=== PATIENT | male | born 1980 | race Caucasian/White ===

== ENCOUNTER 2020-03-21 18:09 | Emergency (ER) | payer SELFPAY ==
--- NOTE | 2020-03-21 19:31 | ER Document Report ---
ED Medical Screen (RME) - General Chief Complaint: Medical Clearance Stated Complaint: MEDICAL CLEARANCE/[place] Time Seen by Provider: 03/21/20 19:23 - HPI Notes: 03/21/20 19:30 39-year-old male to the emergency department stating he needs medical clearance so he can go to [place] for alcoholism. He states that he has been drinking heavily for several years. However, he states that he is drinking habits have increased significantly in the past month and a half. He states he and his of 8 years have gotten . He states that since her separation he has been drinking all the time. He thinks he has had about 26 beers today. He went to [place] to try to get help for his alcoholism and he was sent here for medical clearance before he can have a bed. He denies any SI, HI. He states he has been hearing voices for 3 years. I performed a brief medical screening exam on the patient determined that the patient needs further evaluation and management by main side provider. I have placed initial orders to help expedite care. Physical Exam - Vital signs Vitals: Temp Pulse Resp BP Pulse Ox 98.3 F 107 H 16 149/83 H 96 03/21/20 19:03 03/21/20 19:03 03/21/20 19:03 03/21/20 19:03 03/21/20 19:03 Course - Vital Signs Vital signs: Temp Pulse Resp BP Pulse Ox 98.3 F 107 H 16 149/83 H 96 03/21/20 19:03 03/21/20 19:03 03/21/20 19:03 03/21/20 19:03 03/21/20 19:03
[2020-03-21 20:25] LABS: URINE AMPHETAMINES SCREEN NEGATIVE; URINE BARBITURATES SCREEN NEGATIVE; URINE BENZODIAZEPINES SCREEN NEGATIVE; URINE COCAINE SCREEN NEGATIVE; URINE METHADONE SCREEN NEGATIVE; URINE PHENCYCLIDINE SCREEN NEGATIVE
[2020-03-21 20:26] LABS: URINE MARIJUANA (THC) SCREEN UNCONFIRMED POSITIVE
[2020-03-21 20:30] LABS: ABSOLUTE BASOPHILS # (AUTO) 0.1 10^3/uL (0.0-0.2); ABSOLUTE EOSINOPHILS # (AUTO) 0.1 10^3/uL (0.0-0.6); ABSOLUTE LYMPHOCYTES (AUTO) 2.6 10^3/uL (0.5-4.7); ABSOLUTE MONOCYTES (AUTO) 0.7 10^3/uL (0.1-1.4); ABSOLUTE NEUT (AUTO) 2.9 10^3/uL (1.7-8.2); ALKALINE PHOSPHATASE 54 U/L (38-126); ANION GAP 14 (5-19); ASPARTATE AMINO TRANSFERASE 46 U/L (17-59); BILIRUBIN,DIRECT 0.3 mg/dL (0.0-0.4); BILIRUBIN,TOTAL 0.3 mg/dL (0.2-1.3); BLOOD UREA NITROGEN 10 mg/dL (7-20); CALCIUM 9.6 mg/dL (8.4-10.2); CARBON DIOXIDE 25 mmol/L (22-30); CHLORIDE 105 mmol/L (98-107); EOSINOPHILS % (AUTO) 1.6 % (0-6); GLUCOSE 88 mg/dL (75-110); HEMATOCRIT 46.5 % (37.9-51.0); HEMOGLOBIN 16.2 g/dL (13.5-17.0); LYMPHOCYTES % (AUTO) 40.5 % (13-45); MEAN CORPUSCULAR HEMOGLOBIN 33.7 pg (27.0-33.4); MEAN CORPUSCULAR HGB CONC 34.9 g/dL (32.0-36.0); MEAN CORPUSCULAR VOLUME 96 fl (80-97); MONOCYTES % (AUTO) 10.6 % (3-13); PLATELET COUNT 209 10^3/uL (150-450); POTASSIUM 4.4 mmol/L (3.6-5.0); RED BLOOD COUNT 4.82 10^6/uL (4.35-5.55); RED CELL DISTRIBUTION WIDTH 14.7 % (11.5-14.0); SEGMENTED NEUTROPHILS % (AUTO) 45.3 % (42-78); TOTAL CELLS COUNTED % (AUTO) 100 %; TOTAL PROTEIN 8.1 g/dL (6.3-8.2); WHITE BLOOD COUNT 6.4 10^3/uL (4.0-10.5)
[2020-03-21 20:31] LABS: ACETAMINOPHEN < 10 ug/mL (10-30); SALICYLATE < 1.0 mg/dL (2.0-20.0)
[2020-03-21 20:51] LABS: ALCOHOL 422 mg/dL (NONE DETECTED)
[2020-03-21] MEDS ORDERED: NICOTINE 21 MG/24 HR PATCH.TD24 TD ONE (23:39)
[2020-03-21] MEDS ORDERED: LORAZEPAM INJ 2 MG/1 ML VIAL IV ONE (23:39)
[2020-03-22] MEDS ORDERED: NORMAL SALINE 1000 ML 1,000 ML IV ONE (00:11)
--- NOTE | 2020-03-22 00:55 | ER Document Report ---
Entered by VIDAL THOMAS SCRIBE 03/21/20 9514 Acting as scribe for:GRAZYNA NAQVI DO ED General - General Chief Complaint: Medical Clearance Stated Complaint: MEDICAL CLEARANCE/[place] Time Seen by Provider: 03/21/20 19:23 Information source: Patient Notes: This 39 year old male patient presents to the emergency department today with medical clearance to go to [place]. Patient states he drinks heavily, and the past x1-2 months it has increased to around x2 12 packs of beer daily. Patient states his last period of sobriety was x2 weeks ago where he stayed in a center in [place] for x5 days, but began drinking as soon as he left. 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 Patient states he smokes daily and smokes marijuana. Patient states his of x10 years left him and got a restraining order x1-2 months ago and this is what caused him to increase his drinking. Patient reports history of anxiety. - Related Data Allergies/Adverse Reactions: Penicillins Allergy (Verified 03/21/20 19:45) Past Medical History - General Information source: Patient - Social History Smoking Status: Current Every Day Smoker Cigarette use (# per day): Yes Frequency of alcohol use: Heavy Drug Abuse: Marijuana Family History: Reviewed & Not Pertinent Psychiatric Medical History: Reports: Hx Anxiety Review of Systems - Review of Systems Constitutional: No symptoms reported EENT: No symptoms reported Cardiovascular: No symptoms reported Respiratory: No symptoms reported Gastrointestinal: No symptoms reported Genitourinary: No symptoms reported Male Genitourinary: No symptoms reported Musculoskeletal: No symptoms reported Skin: No symptoms reported Hematologic/Lymphatic: No symptoms reported Neurological/Psychological: See HPI, Anxiety -: Yes All other systems reviewed and negative Physical Exam - Vital signs Vitals: Temp Pulse Resp BP Pulse Ox 98.3 F 107 H 16 149/83 H 96 03/21/20 19:03 03/21/20 19:03 03/21/20 19:03 03/21/20 19:03 03/21/20 19:03 - General General appearance: Alert, Other - Slightly anxious - HEENT Head: Normocephalic, Atraumatic Eyes: Normal Pupils: PERRL - Respiratory Respiratory status: No respiratory distress Chest status: Nontender Breath sounds: Normal Chest palpation: Normal - Cardiovascular Rhythm: Regular Heart sounds: Normal auscultation Murmur: No - Abdominal Inspection: Normal Distension: No distension Bowel sounds: Normal Tenderness: Nontender - Extremities General upper extremity: Normal inspection, Normal ROM General lower extremity: Normal inspection, Normal ROM. No: Edema - Neurological Neuro grossly intact: Yes Cognition: Normal Orientation: AAOx4 Zain Coma Scale Eye Opening: Spontaneous Carnegie Coma Scale Verbal: Oriented Carnegie Coma Scale Motor: Obeys Commands Carnegie Coma Scale Total: 15 Speech: Normal Motor strength normal: LUE, RUE, LLE, RLE Sensory: Normal - Psychological Associated symptoms: Normal affect Notes: Emotional. Slightly anxious. - Skin Skin Temperature: Warm Skin Moisture: Dry Skin Color: Normal Course - Re-evaluation Re-evalutation: 03/22/20 01:40 Pt is over to Dr. Treviño at 0140. Awaiting etoh to be improved and then to [place]. - Vital Signs Vital signs: Temp Pulse Resp BP Pulse Ox 98.0 F 72 20 127/90 H 100 03/22/20 00:05 03/22/20 00:05 03/22/20 00:05 03/22/20 00:05 03/22/20 00:05 - Laboratory Result Diagrams: 03/21/20 19:20 03/21/20 19:20 Laboratory results interpreted by me: 03/21/20 03/21/20 19:20 19:20 MCH 33.7 H RDW 14.7 H Salicylates < 1.0 L Acetaminophen < 10 L Serum Alcohol 422 H* Discharge - Discharge Clinical Impression: Marijuana abuse Alcohol intoxication Qualifiers: Complication of substance-induced condition: uncomplicated Qualified Code(s): F10.920 - Alcohol use, unspecified with intoxication, uncomplicated Condition: Stable Disposition: PSYCH HOSP/UNIT I personally performed the services described in the documentation, reviewed and edited the documentation which was dictated to the scribe in my presence, and it accurately records my words and actions.
[2020-03-22 07:39] VITALS: BP 153/92
== END 2020-03-22 08:09 ==
LOC: ER 18:09
DX: F10.920 Alcohol use, unspecified with intoxication, uncomplicated (principal); F12.10 Cannabis abuse, uncomplicated; F17.210 Nicotine dependence, cigarettes, uncomplicated
CPT/HCPCS: 99285; 96361; 96374; 36415; 80307 ×4; 85025; 80053; J2060; J7030